=== PATIENT | male | born 1935 | race African-American/Black ===

== ENCOUNTER 2021-01-29 20:37 | Emergency (ER) | payer MEDICARE ==
[~2021-01-29] VITALS: Ht 177.8 cm; Wt 76.1 kg
[2021-01-29 21:15] LABS: HEMATOCRIT. 43.7 % (42.0-52.0); HEMOGLOBIN. 14.9 g/dL (14.0-18.0); MEAN CORPUSCULAR HEMOGLOBIN 32.9 pg (28.0-32.0); MEAN CORPUSCULAR VOLUME 96.7 fL (80.0-94.0); MEAN PLATELET VOLUME 7.3 fl (7.4-10.4); PLATELET 161 x1000/uL (130-400); RED BLOOD CELL COUNT 4.52 mill/uL (4.7-6.1); RED CELL DISTRIBUTION WIDTH 16.1 % (11.6-14.6)
[2021-01-29 21:20] LABS: CHLORIDE 111 mEq/L (98-107)
[2021-01-29 21:23] LABS: INR 1.1; PROTHROMBIN TIME 11.4 sec (9.6-11.0)
[2021-01-29 21:24] LABS: ETHANOL BLOOD < 10 mg/dL
[2021-01-29 22:16] LABS: CLARITY URINE CLEAR (CLEAR); COLOR URINE YELLOW (YELLOW); KETONES URINE 1+ (NEGATIVE); LEUKOCYTE ESTERASE URINE NEGATIVE (NEGATIVE); NITRITE URINE NEGATIVE (NEGATIVE); OCCULT BLOOD URINE 1+ (NEGATIVE); PROTEIN URINE TRACE (NEGATIVE); SPECIFIC GRAVITY URINE 1.026 (1.005-1.030)
[2021-01-29 22:27] LABS: PLATELET ESTIMATE NORMAL
[2021-01-29 22:33] LABS: *BARBITURATES SCREEN URINE NEGATIVE (NEGATIVE)
[2021-01-29 22:34] LABS: *AMPHETAMINES SCREEN URINE NEGATIVE (NEGATIVE); *BENZODIAZEPINES SCREEN URINE NEGATIVE (NEGATIVE); *COCAINE SCREEN URINE NEGATIVE (NEGATIVE); METHADONE URINE SCREEN NEGATIVE (NEGATIVE); OPIATES URINE SCREEN NEGATIVE (NEGATIVE); PHENCYCLIDINE URINE SCREEN NEGATIVE (NEGATIVE)
[2021-01-29 22:35] LABS: CANNABINOID URINE SCREEN NEGATIVE (NEGATIVE)
[2021-01-29] MEDS ORDERED: ASPIRIN 300MG SUPP PR ONE (23:15)
[2021-01-30] MEDS ORDERED: IOHEXOL-350 100 ML BOTTLE ONE (01:20)
[2021-01-30 03:02] VITALS: BP 174/67
== END 2021-01-30 03:30 | disposition short-term general hospital (02) ==
LOC: ER 20:37
DX: G45.9 Transient cerebral ischemic attack, unspecified (principal); F03.90 Unspecified dementia, unspecified severity, without behavioral disturbance, psychotic disturbance, mood disturbance, and anxiety; I10 Essential (primary) hypertension
CPT/HCPCS: 36415; 70450; 70496; 70498; 71045; 80053; 80305; 80320; 81003; 82962; 84484; 85025; 85610; 93005; 99285; Q9967; G0480

== ENCOUNTER 2021-02-05 08:49 | Emergency (ER) | payer MEDICARE ==
[~2021-02-05] VITALS: Ht 167.6 cm; Wt 73.0 kg
[2021-02-05] MEDS ORDERED: SODIUM CHLORIDE 0.9% 500 ML IV ONE (09:15)
[2021-02-05 09:36] LABS: BASOPHILS % 0.6 % (0.0-2.0); EOSINOPHILS % 2.3 % (0.0-5.0); HEMATOCRIT. 48.3 % (42.0-52.0); HEMOGLOBIN. 16.6 g/dL (14.0-18.0); MEAN CORPUSCULAR HEMOGLOBIN 32.6 pg (28.0-32.0); MEAN CORPUSCULAR VOLUME 95.2 fL (80.0-94.0); MEAN PLATELET VOLUME 7.4 fl (7.4-10.4); MONOCYTES % 8.8 % (2.0-8.0); NEUTROPHILS % 52.3 % (40.0-76.0); PLATELET 174 x1000/uL (130-400); RED BLOOD CELL COUNT 5.08 mill/uL (4.7-6.1); RED CELL DISTRIBUTION WIDTH 15.8 % (11.6-14.6)
[2021-02-05 09:41] LABS: CHLORIDE 111 mEq/L (98-107)
[2021-02-05 09:46] LABS: ETHANOL BLOOD < 10 mg/dL
[2021-02-05] MEDS ORDERED: ENALAPRIL 2.5MG/2ML VIAL 2ML IV ONE (10:45)
[2021-02-05] MEDS ORDERED: ENALAPRIL 1.25MG/ML VIAL 1ML IV NR (10:45)
[2021-02-05 13:26] VITALS: BP 155/69
== END 2021-02-05 14:16 | disposition short-term general hospital (02) ==
LOC: ER 08:56 → EDBEDREQ 09:08 → CANBEDREQ 13:45 → ER 14:16
DX: R55 Syncope and collapse (principal); I10 Essential (primary) hypertension; F03.90 Unspecified dementia, unspecified severity, without behavioral disturbance, psychotic disturbance, mood disturbance, and anxiety; W01.0XXA Fall on same level from slipping, tripping and stumbling without subsequent striking against object, initial encounter; Y93.89 Activity, other specified; Y92.018 Other place in single-family (private) house as the place of occurrence of the external cause
CPT/HCPCS: 36415; 70450; 71045; 80053; 80320; 83690; 83880; 84484; 85025; 93005; 96361; 96374; 99285; J3490; J7040; G0480

== ENCOUNTER 2021-06-01 20:28 | Inpatient (IN) | payer MEDICARE ==
[~2021-06-01] VITALS: Ht 182.9 cm; Wt 73.9 kg
[~2021-06-01 20:28] MED LIST: AMLO10TA4 MT; KEPP500 MT; LISI10TA26 MT
[2021-06-01 23:34] LABS: CLARITY URINE CLEAR (CLEAR); COLOR URINE YELLOW (YELLOW); KETONES URINE NEGATIVE (NEGATIVE); LEUKOCYTE ESTERASE URINE NEGATIVE (NEGATIVE); NITRITE URINE NEGATIVE (NEGATIVE); OCCULT BLOOD URINE TRACE (NEGATIVE); PROTEIN URINE NEGATIVE (NEGATIVE); SPECIFIC GRAVITY URINE 1.008 (1.005-1.030)
[2021-06-01 23:37] LABS: BASOPHILS % 0.5 % (0.0-2.0); EOSINOPHILS % 1.6 % (0.0-5.0); HEMATOCRIT. 44.3 % (42.0-52.0); LYMPHOCYTES % 28.7 % (20.0-50.0); MEAN CORPUSCULAR HEMOGLOBIN 32.7 pg (28.0-32.0); MEAN CORPUSCULAR VOLUME 96.9 fL (80.0-94.0); MEAN PLATELET VOLUME 7.7 fl (7.4-10.4); MONOCYTES % 8.5 % (2.0-8.0); NEUTROPHILS % 60.7 % (40.0-76.0); PLATELET 196 x1000/uL (130-400); RED BLOOD CELL COUNT 4.57 mill/uL (4.7-6.1); RED CELL DISTRIBUTION WIDTH 16.6 % (11.6-14.6)
[2021-06-01 23:41] LABS: CHLORIDE 111 mEq/L (98-107)
[2021-06-02] VITALS (41 sets, daily range): BP systolic 114–158; BP diastolic 43–109
[2021-06-02] MEDS ORDERED: LEVETIRACETAM 500MG PREMIX 100 ML IV ONE (01:30)
[2021-06-02 03:11] LABS: PROTHROMBIN TIME 10.9 sec (9.6-11.0)
[2021-06-02] MEDS ORDERED: ATOR10TA MT (03:51)
[2021-06-02] MEDS ORDERED: AMLO5TAB88 MT (03:51)
[2021-06-02] MEDS ORDERED: LORA-249 MT (03:51)
[2021-06-02] MEDS ORDERED: ASPI-1497 MT (03:51)
[2021-06-02] MEDS ORDERED: ONDANSETRON HCL 4MG/2ML INJ IV PRN (04:30)
[2021-06-02] MEDS: DEXT 5%/LACTATED RINGERS 1,000 ML IV SCH (04:37)
[2021-06-02] MEDS ORDERED: NICARDIPINE 100 MG in SODIUM CHLORIDE 0.9% 60 ML IV PRN (05:00)
[2021-06-02 05:59] LABS: BASOPHILS % 0.5 % (0.0-2.0); EOSINOPHILS % 2.2 % (0.0-5.0); HEMATOCRIT. 41.7 % (42.0-52.0); HEMOGLOBIN. 14.2 g/dL (14.0-18.0); LYMPHOCYTES % 30.9 % (20.0-50.0); MEAN CORPUSCULAR HEMOGLOBIN 32.6 pg (28.0-32.0); MEAN CORPUSCULAR VOLUME 95.7 fL (80.0-94.0); MEAN PLATELET VOLUME 7.8 fl (7.4-10.4); MONOCYTES % 8.6 % (2.0-8.0); NEUTROPHILS % 57.8 % (40.0-76.0); PLATELET 179 x1000/uL (130-400); RED BLOOD CELL COUNT 4.35 mill/uL (4.7-6.1); RED CELL DISTRIBUTION WIDTH 16.6 % (11.6-14.6)
[2021-06-02 06:11] LABS: CHLORIDE 114 mEq/L (98-107)
[2021-06-02] MEDS: FAMOTIDINE 20MG/2ML VIAL IV SCH (08:42)
[2021-06-02] MEDS: LEVETIRACETAM 500MG PREMIX 100 ML IV SCH ×2 (08:43→22:08)
[2021-06-02] MEDS ORDERED: AMLODIPINE 5MG TABLET PO SCH (09:00)
[2021-06-02] MEDS ORDERED: HYDRALAZINE 20MG/ML VIAL IV PRN (10:30)
[2021-06-02] MEDS ORDERED: IPRATROPIUM/ALBUTEROL 0.5-3(2.5)MG/3ML NEB HHN PRN (10:30)
[2021-06-02] MEDS ORDERED: BISACODYL 10MG SUPP PR PRN (10:30)
[2021-06-03] VITALS (30 sets, daily range): BP systolic 123–156; BP diastolic 59–90
[2021-06-03 05:09] LABS: BASOPHILS % 0.4 % (0.0-2.0); EOSINOPHILS % 3.6 % (0.0-5.0); HEMOGLOBIN. 13.6 g/dL (14.0-18.0); LYMPHOCYTES % 31.6 % (20.0-50.0); MEAN CORPUSCULAR HEMOGLOBIN 32.2 pg (28.0-32.0); MEAN CORPUSCULAR VOLUME 96.9 fL (80.0-94.0); MEAN PLATELET VOLUME 7.5 fl (7.4-10.4); MONOCYTES % 9.6 % (2.0-8.0); NEUTROPHILS % 54.8 % (40.0-76.0); PLATELET 169 x1000/uL (130-400); RED BLOOD CELL COUNT 4.23 mill/uL (4.7-6.1); RED CELL DISTRIBUTION WIDTH 16.2 % (11.6-14.6)
[2021-06-03 05:35] LABS: CHLORIDE 113 mEq/L (98-107)
[2021-06-03 05:47] LABS: LDL CHOLESTEROL 77 mg/dL (5-100)
[2021-06-03 05:48] LABS: HDL CHOLESTEROL 52 mg/dL (40-59)
[2021-06-03] MEDS: FAMOTIDINE 20MG/2ML VIAL IV SCH (10:05)
[2021-06-03] MEDS: LEVETIRACETAM 500MG PREMIX 100 ML IV SCH ×2 (10:05→20:46)
[2021-06-03] MEDS: DEXT 5%/LACTATED RINGERS 1,000 ML IV SCH (13:48)
[2021-06-03] MEDS: AMLODIPINE 5MG TABLET PO SCH (14:24)
[2021-06-03] MEDS: QUETIAPINE FUMARATE 25MG TABLET PO SCH (20:25)
[2021-06-03] MEDS ORDERED: MEMANTINE HCL 5MG TABLET PO SCH (21:00)
[2021-06-04] VITALS: BP 141/81
[2021-06-04 04:00] VITALS: BP 164/76
[2021-06-04 06:13] LABS: BASOPHILS % 0.3 % (0.0-2.0); EOSINOPHILS % 2.7 % (0.0-5.0); HEMATOCRIT. 47.9 % (42.0-52.0); HEMOGLOBIN. 15.9 g/dL (14.0-18.0); LYMPHOCYTES % 35.5 % (20.0-50.0); MEAN CORPUSCULAR HEMOGLOBIN 32.4 pg (28.0-32.0); MEAN CORPUSCULAR VOLUME 97.7 fL (80.0-94.0); MEAN PLATELET VOLUME 7.6 fl (7.4-10.4); MONOCYTES % 8.6 % (2.0-8.0); NEUTROPHILS % 52.9 % (40.0-76.0); PLATELET 194 x1000/uL (130-400); RED CELL DISTRIBUTION WIDTH 16.2 % (11.6-14.6)
[2021-06-04 07:07] LABS: CHLORIDE 110 mEq/L (98-107)
[2021-06-04 08:00] VITALS: BP 149/65
[2021-06-04] MEDS: FAMOTIDINE 20MG/2ML VIAL IV SCH (09:00)
[2021-06-04] MEDS: LEVETIRACETAM 500MG PREMIX 100 ML IV SCH (09:00)
[2021-06-04] MEDS: QUETIAPINE FUMARATE 25MG TABLET PO SCH (09:00)
[2021-06-04] MEDS: AMLODIPINE 5MG TABLET PO SCH (09:38)
== END 2021-06-04 11:12 | disposition left against medical advice (07) | DRG 70 ==
LOC: ER 20:28 → MICUNO 06-02 01:28 → ENRESERV 06-02 02:39 → 8WST 06-03 15:17
PROVIDERS: ADMIT Internal Medicine; ATTEND Internal Medicine
DX: G93.40 Encephalopathy, unspecified (principal); I62.01 Nontraumatic acute subdural hemorrhage; D72.819 Decreased white blood cell count, unspecified; E87.8 Other disorders of electrolyte and fluid balance, not elsewhere classified; F03.90 Unspecified dementia, unspecified severity, without behavioral disturbance, psychotic disturbance, mood disturbance, and anxiety; I10 Essential (primary) hypertension; Z20.822 Contact with and (suspected) exposure to COVID-19; Z53.21 Procedure and treatment not carried out due to patient leaving prior to being seen by health care provider; Z86.73 Personal history of transient ischemic attack (TIA), and cerebral infarction without residual deficits; Z91.81 History of falling; Z79.899 Other long term (current) drug therapy; Z79.82 Long term (current) use of aspirin; Z78.1 Physical restraint status
CPT/HCPCS: 36415; 70551; 71045; 80048; 80053; 80061; 81003; 82962; 83036; 84443; 84484; 85025; 87426; 93005; 93306; 93880; 93970; 99291; J1953; J3490; J7121

== ENCOUNTER 2021-06-19 19:31 | Emergency (ER) | payer MEDICARE ==
[~2021-06-19] VITALS: Ht 170.2 cm; Wt 73.0 kg
[~2021-06-19 19:31] MED LIST changes: -AMLO10TA4 MT; +AMLO5TAB88 MT; +ASPI-1497 MT; +ATOR10TA MT; -KEPP500 MT; -LISI10TA26 MT; +LORA-249 MT
[2021-06-19 19:34] VITALS: BP 145/70
== END 2021-06-19 20:51 | disposition left against medical advice (07) ==
LOC: ER 19:31
DX: R41.82 Altered mental status, unspecified (principal); I49.9 Cardiac arrhythmia, unspecified; Z13.9 Encounter for screening, unspecified
CPT/HCPCS: 93005; 99283

== ENCOUNTER 2021-08-19 11:28 | Emergency (ER) | payer MEDICARE ==
[~2021-08-19] VITALS: Ht 177.8 cm; Wt 88.0 kg
[2021-08-19 12:16] LABS: BASOPHILS % 0.4 % (0.0-2.0); EOSINOPHILS % 1.1 % (0.0-5.0); HEMATOCRIT. 44.3 % (42.0-52.0); HEMOGLOBIN. 14.7 g/dL (14.0-18.0); LYMPHOCYTES % 27.8 % (20.0-50.0); MEAN CORPUSCULAR HEMOGLOBIN 32.2 pg (28.0-32.0); MEAN CORPUSCULAR VOLUME 97.2 fL (80.0-94.0); MEAN PLATELET VOLUME 7.5 fl (7.4-10.4); MONOCYTES % 9.8 % (2.0-8.0); NEUTROPHILS % 60.9 % (40.0-76.0); PLATELET 177 x1000/uL (130-400); RED BLOOD CELL COUNT 4.56 mill/uL (4.7-6.1); RED CELL DISTRIBUTION WIDTH 15.8 % (11.6-14.6)
[2021-08-19 12:19] LABS: CHLORIDE 111 mEq/L (98-107)
[2021-08-19 13:30] VITALS: BP 150/78
[2021-08-19 14:47] LABS: CLARITY URINE CLEAR (CLEAR); COLOR URINE YELLOW (YELLOW); KETONES URINE NEGATIVE (NEGATIVE); LEUKOCYTE ESTERASE URINE NEGATIVE (NEGATIVE); NITRITE URINE NEGATIVE (NEGATIVE); OCCULT BLOOD URINE 1+ (NEGATIVE); PH URINE 6.5 (4.5-8.0); PROTEIN URINE NEGATIVE (NEGATIVE); SPECIFIC GRAVITY URINE 1.015 (1.005-1.030); UROBILINOGEN URINE 0.2 E.U./dL (0.2-1.0)
== END 2021-08-19 14:54 | disposition left against medical advice (07) ==
LOC: ER 11:28
DX: R41.0 Disorientation, unspecified (principal); F03.90 Unspecified dementia, unspecified severity, without behavioral disturbance, psychotic disturbance, mood disturbance, and anxiety; I10 Essential (primary) hypertension; Z79.899 Other long term (current) drug therapy
CPT/HCPCS: 36415; 71045; 80053; 81003; 84443; 84484; 85025; 99285

== ENCOUNTER 2021-09-03 20:19 | Emergency (ER) | payer MEDICARE ==
[~2021-09-03] VITALS: Ht 167.6 cm; Wt 70.0 kg
[2021-09-03] MEDS ORDERED: LIDOCAINE HCL/PF 1% 10 MG/ML 5ML VIAL INFIL ONE (23:45)
[2021-09-03] MEDS ORDERED: BACITRACIN ZINC OINT UDPKT TOP ONE (23:45)
[2021-09-03] MEDS ORDERED: LIDOCAINE HCL 1% 20ML VIAL (Pyxis) INJ INFIL NR (23:45)
[2021-09-04] MEDS ORDERED: TOPUD MT (00:50)
[2021-09-04 00:53] VITALS: BP 145/85
== END 2021-09-04 01:02 | disposition home or self-care (01) ==
LOC: ER 20:19
DX: S00.432A Contusion of left ear, initial encounter (principal); I10 Essential (primary) hypertension; F03.90 Unspecified dementia, unspecified severity, without behavioral disturbance, psychotic disturbance, mood disturbance, and anxiety; Z79.899 Other long term (current) drug therapy; X58.XXXA Exposure to other specified factors, initial encounter; Y93.89 Activity, other specified; Y92.89 Other specified places as the place of occurrence of the external cause; Y99.8 Other external cause status
CPT/HCPCS: 69000; 99284; J3490

== ENCOUNTER 2021-09-17 14:16 | Emergency (ER) | payer MEDICARE ==
[~2021-09-17] VITALS: Ht 172.7 cm; Wt 89.0 kg
[~2021-09-17 14:16] MED LIST changes: +TOPUD MT
[2021-09-17 14:30] VITALS: BP 137/69
[2021-09-17] MEDS ORDERED: ACETAMINOPHEN 500MG TABLET PO ONE (14:45)
[2021-09-17] MEDS ORDERED: ACET-2708 MT (16:04)
== END 2021-09-17 16:32 | disposition home or self-care (01) ==
LOC: ER 14:16
DX: S02.2XXA Fracture of nasal bones, initial encounter for closed fracture (principal); S00.212A Abrasion of left eyelid and periocular area, initial encounter; S00.432A Contusion of left ear, initial encounter; S00.431A Contusion of right ear, initial encounter; W01.0XXA Fall on same level from slipping, tripping and stumbling without subsequent striking against object, initial encounter; Y93.89 Activity, other specified; Y92.018 Other place in single-family (private) house as the place of occurrence of the external cause
CPT/HCPCS: 70486; 99284

== ENCOUNTER 2021-09-24 12:02 | Emergency (ER) | payer MEDICARE ==
[~2021-09-24] VITALS: Ht 172.7 cm; Wt 70.0 kg
[~2021-09-24 12:02] MED LIST changes: +ACET-2708 MT
[2021-09-24 13:27] LABS: BASOPHILS % 0.8 % (0.0-2.0); EOSINOPHILS % 1.6 % (0.0-5.0); HEMATOCRIT. 44.1 % (42.0-52.0); HEMOGLOBIN. 15.2 g/dL (14.0-18.0); LYMPHOCYTES % 27.6 % (20.0-50.0); MEAN CORPUSCULAR HEMOGLOBIN 33.2 pg (28.0-32.0); MEAN CORPUSCULAR VOLUME 96.3 fL (80.0-94.0); MEAN PLATELET VOLUME 7.5 fl (7.4-10.4); MONOCYTES % 8.5 % (2.0-8.0); NEUTROPHILS % 61.5 % (40.0-76.0); PLATELET 190 x1000/uL (130-400); RED BLOOD CELL COUNT 4.58 mill/uL (4.7-6.1); RED CELL DISTRIBUTION WIDTH 15.3 % (11.6-14.6)
[2021-09-24 13:35] LABS: CHLORIDE 113 mEq/L (98-107)
[2021-09-24] MEDS ORDERED: LIDOCAINE HCL 1% 20ML VIAL (Pyxis) INJ INFIL ONE (14:45)
[2021-09-24] MEDS ORDERED: LEVO500T89 MT (16:42)
[2021-09-24] MEDS ORDERED: IBUP-2028 MT (16:42)
[2021-09-24 16:55] VITALS: BP 127/68
== END 2021-09-24 17:05 | disposition home or self-care (01) ==
LOC: ER 12:02
DX: S00.432A Contusion of left ear, initial encounter (principal); S00.431A Contusion of right ear, initial encounter; H60.03 Abscess of external ear, bilateral; I10 Essential (primary) hypertension; F03.90 Unspecified dementia, unspecified severity, without behavioral disturbance, psychotic disturbance, mood disturbance, and anxiety; Z79.82 Long term (current) use of aspirin; W01.0XXA Fall on same level from slipping, tripping and stumbling without subsequent striking against object, initial encounter; Y93.89 Activity, other specified; Y92.018 Other place in single-family (private) house as the place of occurrence of the external cause
CPT/HCPCS: 10060; 36415; 70450; 71045; 80053; 83880; 84484; 85025; 93005; 99285; J3490

== ENCOUNTER 2021-10-01 12:01 | Emergency (ER) | payer MEDICARE ==
[~2021-10-01] VITALS: Ht 170.2 cm; Wt 77.0 kg
[~2021-10-01 12:01] MED LIST changes: +IBUP-2028 MT; +LEVO500T89 MT
[2021-10-01 12:46] VITALS: BP 131/77
[2021-10-01] MEDS ORDERED: LEVO500T89 PO (13:21)
== END 2021-10-01 13:32 | disposition home or self-care (01) ==
LOC: ER 12:01
DX: S00.432A Contusion of left ear, initial encounter (principal); S00.431A Contusion of right ear, initial encounter; I10 Essential (primary) hypertension; F03.90 Unspecified dementia, unspecified severity, without behavioral disturbance, psychotic disturbance, mood disturbance, and anxiety; Z79.82 Long term (current) use of aspirin; X58.XXXA Exposure to other specified factors, initial encounter; Y93.89 Activity, other specified; Y92.018 Other place in single-family (private) house as the place of occurrence of the external cause
CPT/HCPCS: 99282

== ENCOUNTER 2021-10-29 10:10 | Emergency (ER) | payer MEDICARE, OTHER ==
[~2021-10-29] VITALS: Ht 165.1 cm; Wt 77.0 kg
[~2021-10-29 10:10] MED LIST changes: +LEVO500T89 PO
[2021-10-29 11:54] LABS: CHLORIDE 118 mEq/L (98-107)
[2021-10-29 11:59] LABS: BASOPHILS % 0.3 % (0.0-2.0); EOSINOPHILS % 1.3 % (0.0-5.0); HEMATOCRIT. 40.6 % (42.0-52.0); HEMOGLOBIN. 13.6 g/dL (14.0-18.0); LYMPHOCYTES % 16.5 % (20.0-50.0); MEAN CORPUSCULAR HEMOGLOBIN 31.9 pg (28.0-32.0); MEAN CORPUSCULAR VOLUME 95.5 fL (80.0-94.0); MEAN PLATELET VOLUME 7.4 fl (7.4-10.4); MONOCYTES % 9.7 % (2.0-8.0); NEUTROPHILS % 72.2 % (40.0-76.0); PLATELET 176 x1000/uL (130-400); RED BLOOD CELL COUNT 4.25 mill/uL (4.7-6.1); RED CELL DISTRIBUTION WIDTH 15.6 % (11.6-14.6)
[2021-10-29 12:33] LABS: INR 1.1; PROTHROMBIN TIME 11.4 sec (9.6-11.0)
[2021-10-29 14:44] VITALS: BP 127/63
== END 2021-10-29 15:20 | disposition short-term general hospital (02) ==
LOC: ER 10:15
DX: S01.311A Laceration without foreign body of right ear, initial encounter (principal); H61.121 Hematoma of pinna, right ear; I10 Essential (primary) hypertension; F03.90 Unspecified dementia, unspecified severity, without behavioral disturbance, psychotic disturbance, mood disturbance, and anxiety; E78.00 Pure hypercholesterolemia, unspecified; Z20.822 Contact with and (suspected) exposure to COVID-19; Z79.82 Long term (current) use of aspirin; W01.0XXA Fall on same level from slipping, tripping and stumbling without subsequent striking against object, initial encounter; Y93.89 Activity, other specified; Y92.018 Other place in single-family (private) house as the place of occurrence of the external cause
CPT/HCPCS: 36415; 80053; 85025; 87426; 99285

== ENCOUNTER 2021-12-28 12:15 | Emergency (ER) | payer OTHER ==
[~2021-12-28] VITALS: Ht 180.3 cm; Wt 73.0 kg
[2021-12-28] MEDS ORDERED: HYDROCODONE/ACETAMINOPHEN 5/325MG TABLET PO ONE (13:00)
[2021-12-28] MEDS ORDERED: KETOROLAC 60MG/2ML VIAL IM ONE (13:00)
[2021-12-28] MEDS ORDERED: ONDANSETRON HCL 4MG/2ML INJ IV STA (13:16)
[2021-12-28] MEDS ORDERED: SODIUM CHLORIDE 0.9% 1,000 ML IV ONE (13:30)
[2021-12-28 13:39] LABS: BASOPHILS % 0.5 % (0.0-2.0); EOSINOPHILS % 1.3 % (0.0-5.0); HEMATOCRIT. 41.3 % (42.0-52.0); HEMOGLOBIN. 13.7 g/dL (14.0-18.0); MEAN CORPUSCULAR HEMOGLOBIN 31.9 pg (28.0-32.0); MEAN CORPUSCULAR VOLUME 96.1 fL (80.0-94.0); MEAN PLATELET VOLUME 7.1 fl (7.4-10.4); MONOCYTES % 8.2 % (2.0-8.0); PLATELET 252 x1000/uL (130-400)
[2021-12-28 13:46] LABS: CHLORIDE 112 mEq/L (98-107)
[2021-12-28 13:50] LABS: ETHANOL BLOOD < 10 mg/dL
[2021-12-28 14:08] LABS: CLARITY URINE CLEAR (CLEAR); COLOR URINE YELLOW (YELLOW); KETONES URINE NEGATIVE (NEGATIVE); LEUKOCYTE ESTERASE URINE NEGATIVE (NEGATIVE); NITRITE URINE NEGATIVE (NEGATIVE); OCCULT BLOOD URINE 1+ (NEGATIVE); PH URINE 5.5 (4.5-8.0); PROTEIN URINE NEGATIVE (NEGATIVE); SPECIFIC GRAVITY URINE 1.023 (1.005-1.030)
[2021-12-28 14:18] LABS: *BARBITURATES SCREEN URINE NEGATIVE (NEGATIVE); CANNABINOID URINE SCREEN NEGATIVE (NEGATIVE); OPIATES URINE SCREEN NEGATIVE (NEGATIVE)
[2021-12-28 14:19] LABS: *AMPHETAMINES SCREEN URINE NEGATIVE (NEGATIVE); *BENZODIAZEPINES SCREEN URINE NEGATIVE (NEGATIVE); *COCAINE SCREEN URINE NEGATIVE (NEGATIVE); METHADONE URINE SCREEN NEGATIVE (NEGATIVE)
[2021-12-28 14:20] LABS: PHENCYCLIDINE URINE SCREEN NEGATIVE (NEGATIVE)
[2021-12-28] MEDS ORDERED: ONDA4TAB5 MT (15:09)
[2021-12-28] MEDS ORDERED: CIPR500T5 MT (15:09)
[2021-12-28 15:33] VITALS: BP 130/66
== END 2021-12-28 16:09 | disposition home or self-care (01) ==
LOC: ER 12:20
DX: N40.0 Benign prostatic hyperplasia without lower urinary tract symptoms (principal); F03.90 Unspecified dementia, unspecified severity, without behavioral disturbance, psychotic disturbance, mood disturbance, and anxiety; N39.0 Urinary tract infection, site not specified; K44.9 Diaphragmatic hernia without obstruction or gangrene
CPT/HCPCS: 36415; 74176; 80053; 80305; 80320; 81003; 83690; 85025; 96361; 96374; 99284; J2405; J7030; G0480

== ENCOUNTER 2022-08-27 19:45 | Emergency (ER) | payer MEDICARE, OTHER ==
[~2022-08-27] VITALS: Ht 172.7 cm; Wt 63.0 kg
[~2022-08-27 19:45] MED LIST changes: +CIPR500T5 MT; +LEVO-65 MT; +LEVO-65 PO; -LEVO500T89 MT; -LEVO500T89 PO; +ONDA4TAB5 MT
[2022-08-27] MEDS ORDERED: SODIUM CHLORIDE 0.9% 1,000 ML IV ONE (20:45)
[2022-08-27 21:14] LABS: BASOPHILS % 0.3 % (0.0-2.0); EOSINOPHILS % 0.1 % (0.0-5.0); HEMATOCRIT. 43.8 % (42.0-52.0); HEMOGLOBIN. 14.7 g/dL (14.0-18.0); LYMPHOCYTES % 9.2 % (20.0-50.0); MEAN CORPUSCULAR HEMOGLOBIN 32.4 pg (28.0-32.0); MEAN CORPUSCULAR VOLUME 96.3 fL (80.0-94.0); MEAN PLATELET VOLUME 7.4 fl (7.4-10.4); MONOCYTES % 8.6 % (2.0-8.0); NEUTROPHILS % 81.8 % (40.0-76.0); PLATELET 203 x1000/uL (130-400); RED BLOOD CELL COUNT 4.54 mill/uL (4.7-6.1); RED CELL DISTRIBUTION WIDTH 15.8 % (11.6-14.6)
[2022-08-27 21:28] LABS: CHLORIDE 109 mEq/L (98-107)
[2022-08-28 02:00] VITALS: BP 135/69
== END 2022-08-28 03:23 | disposition short-term general hospital (02) ==
LOC: ER 19:45 → CANBEDREQ 08-28 03:33
DX: R53.1 Weakness (principal); G93.49 Other encephalopathy; F03.90 Unspecified dementia, unspecified severity, without behavioral disturbance, psychotic disturbance, mood disturbance, and anxiety; Z20.822 Contact with and (suspected) exposure to COVID-19
CPT/HCPCS: 36415; 70450; 71045; 80053; 83605; 84484; 85025; 86850; 86900; 86901; 87426; 87804; 93005; 96360; 99291; C9803; J7030

== ENCOUNTER 2022-11-10 18:45 | Emergency (ER) | payer OTHER ==
[~2022-11-10] VITALS: Ht 182.9 cm; Wt 82.0 kg
[2022-11-10] MEDS ORDERED: IOHEXOL-350 100 ML BOTTLE ONE (20:05)
[2022-11-10 20:39] LABS: BASOPHILS % 0.3 % (0.0-2.0); EOSINOPHILS % 1.6 % (0.0-5.0); HEMATOCRIT. 44.2 % (42.0-52.0); HEMOGLOBIN. 14.6 g/dL (14.0-18.0); LYMPHOCYTES % 23.3 % (20.0-50.0); MEAN PLATELET VOLUME 7.7 fl (7.4-10.4); MONOCYTES % 5.2 % (2.0-8.0); NEUTROPHILS % 69.6 % (40.0-76.0); PLATELET 172 x1000/uL (130-400); RED BLOOD CELL COUNT 4.56 mill/uL (4.7-6.1)
[2022-11-10 20:45] LABS: CHLORIDE 121 mEq/L (98-107)
[2022-11-10 20:47] LABS: INR 1.1; PROTHROMBIN TIME 11.4 sec (9.6-11.0)
[2022-11-10 20:53] LABS: BG BASE EXCESS 1.6 mmol/L (-2.0-2.0); BG CARBOXYHEMOGLOBIN 0.4 % (0.5-1.5); BG DEOXYHEMOGLOBIN 3.5 % (0.0-5.0); BG METHEMOGLOBIN 0.4 % (0.0-1.5); BG OXYGEN SATURATION 96.5 % (92.0-98.5); BG OXYHEMOGLOBIN 95.7 % (94.0-97.0); BG SAMPLE SITE LEFT RADIAL; BG TOTAL HEMOGLOBIN 15.1 g/dL (12.0-18.0); BG VENT MODE ROOM AIR
[2022-11-10 20:57] LABS: ETHANOL BLOOD < 10 mg/dL
[2022-11-10] MEDS ORDERED: SODIUM CHLORIDE 0.9% 1,000 ML IV ONE (21:30)
[2022-11-10 22:44] VITALS: BP 129/70
== END 2022-11-10 23:11 | disposition short-term general hospital (02) ==
LOC: ER 18:45
DX: E87.0 Hyperosmolality and hypernatremia (principal); E86.0 Dehydration; R41.82 Altered mental status, unspecified; F03.90 Unspecified dementia, unspecified severity, without behavioral disturbance, psychotic disturbance, mood disturbance, and anxiety; Z79.899 Other long term (current) drug therapy; Z20.822 Contact with and (suspected) exposure to COVID-19
CPT/HCPCS: 36415; 36600; 70450; 70496; 70498; 71045; 80053; 80320; 82375; 82805; 83605; 83880; 84484; 85025; 85610; 86850; 86900; 86901; 87040; 87426; 93005; 99291; C9803; J7030; Q9967; G0480

== ENCOUNTER 2023-04-12 07:22 | Emergency (ER) | payer OTHER ==
[~2023-04-12] VITALS: Ht 167.6 cm; Wt 68.0 kg
[2023-04-12 07:24] VITALS: BP 159/85; PULSE 68; RESP 16; TEMP 97.9; O2SAT 94
[2023-04-12 08:35] LABS: BASOPHILS % 0.7 % (0.0-2.0); EOSINOPHILS % 2.6 % (0.0-5.0); HEMATOCRIT. 42.8 % (42.0-52.0); HEMOGLOBIN. 14.4 g/dL (14.0-18.0); LYMPHOCYTES % 33.5 % (20.0-50.0); MEAN CORPUSCULAR HEMOGLOBIN 32.4 pg (28.0-32.0); MEAN CORPUSCULAR HGB CONC 33.8 g/dL (31.0-37.0); NEUTROPHILS % 54.2 % (40.0-76.0); PLATELET 175 x1000/uL (130-400); RED BLOOD CELL COUNT 4.45 mill/uL (4.7-6.1); WHITE BLOOD COUNT 3.6 x1000/uL (4.5-11.0)
[2023-04-12 08:41] LABS: CHLORIDE 111 mEq/L (98-107); INDEX HEMOLYSI 1 (1-3); INDEX ICTERIC 1 (1-4); INDEX LIPEMIC 1 (1-3); SODIUM 140 mEq/L (136-145)
[2023-04-12 08:44] LABS: INDEX HEMOLYSI 1 (1-3); PROTHROMBIN TIME 11.1 sec (9.6-11.0)
[2023-04-12 08:47] LABS: AMMONIA < 10 uMol/L (<32)
[2023-04-12 08:51] LABS: ALANINE AMINOTRANSFERASE 21 IU/L (13-61); ALBUMIN 3.2 g/dL (3.4-5.0); ASPARTATE AMINOTRANSFERASE 21 IU/L (15-37); BILIRUBIN TOTAL 0.3 mg/dL (0.1-1.0); CALCIUM 8.8 mg/dL (8.5-10.1); CARBON DIOXIDE 28 mEq/L (21-32); GLUCOSE 107 mg/dL (70-105); TROPONIN I HIGH SENSITIVITY 16 ng/L (<78); UREA NITROGEN BLOOD 19 mg/dL (7-21)
[2023-04-12] MEDS ORDERED: SODIUM CHLORIDE 0.9% 500 ML IV ONE (14:00)
== END 2023-04-12 16:00 | disposition short-term general hospital (02) ==
LOC: ER 07:50 → CANBEDREQ 14:14 → ER 16:00
DX: R41.82 Altered mental status, unspecified (principal); I10 Essential (primary) hypertension; Z79.899 Other long term (current) drug therapy; Z86.73 Personal history of transient ischemic attack (TIA), and cerebral infarction without residual deficits
CPT/HCPCS: 99285; 96360; 70450; 71045; 80053; 82140; 83605; 85025; 85610; 84484; 36415; 93005; J7040